=== PATIENT | female | born 1990 | race Two or more races ===

== ENCOUNTER → 2017-07-12 | Emergency (ER) | payer OTHER ==
[~2017-07-12] VITALS: Ht 172.7 cm; Wt 77.6 kg
[~2017-07-12] MED LIST: CLARITIN-D 121 EACH PO; FLOVENT HFA10.6 GM IH; MEDROLPACK PO; OSEL75CA PO; PROVENTIL0.5 ML/2.5; SINGULAIR 10MG10 MG PO; SYNTHROID75 MCG; TUSSI PRES-B L120 M1 PO; TUSSI-PRES LIQ118 ML PO; ZITHROMAX TRI-500 MG PO; ZITHROMAX500 MG PO; ZYNCOF 20-400120 ML PO
== END | disposition home or self-care (01) ==
LOC: ER 22:14
DX: J40 Bronchitis, not specified as acute or chronic (principal)

== ENCOUNTER 2018-10-11 23:20 | Emergency (ER) | payer OTHER ==
[~2018-10-11] VITALS: Ht 170.2 cm; Wt 86.2 kg
[2018-10-12] MEDS ORDERED: ZEBUTAL 50-3251 EACH PO (06:25)
== END 2018-10-12 06:32 | disposition home or self-care (01) ==
LOC: ER 23:20
DX: R51 Headache (principal)

== ENCOUNTER 2018-12-24 14:33 | Emergency (ER) | payer OTHER ==
[~2018-12-24] VITALS: Ht 172.7 cm; Wt 83.9 kg
[~2018-12-24 14:33] MED LIST changes: +ZEBUTAL 50-3251 EACH PO
== END 2018-12-24 21:25 | disposition home or self-care (01) ==
LOC: ER 14:33
DX: G25.1 Drug-induced tremor (principal); T50.995A Adverse effect of other drugs, medicaments and biological substances, initial encounter

== ENCOUNTER 2019-05-16 02:58 | Emergency (ER) | payer OTHER ==
[~2019-05-16] VITALS: Ht 170.2 cm; Wt 87.1 kg
== END 2019-05-16 11:14 | disposition home or self-care (01) ==
LOC: ER 02:58
DX: N93.8 Other specified abnormal uterine and vaginal bleeding (principal); N92.0 Excessive and frequent menstruation with regular cycle

== ENCOUNTER 2019-08-23 13:41 | Emergency (ER) | payer OTHER ==
[~2019-08-23] VITALS: Ht 172.7 cm; Wt 86.2 kg
[2019-08-23] MEDS ORDERED: TUSSI PRES-B L480 ML PO (14:21)
[2019-08-23] MEDS ORDERED: DOLOGEN CAPLET1 EACH PO (16:59)
[2019-08-23] MEDS ORDERED: TUSNEL LIQUID178 ML PO (16:59)
[2019-08-23] MEDS ORDERED: ZITHROMAX500 MG PO (16:59)
== END 2019-08-23 17:09 | disposition home or self-care (01) ==
LOC: ER 13:41
DX: B33.8 Other specified viral diseases (principal); B96.0 Mycoplasma pneumoniae [M. pneumoniae] as the cause of diseases classified elsewhere